=== PATIENT | female | born 1995 | race Caucasian/White ===

== ENCOUNTER 2017-01-29 23:57 | Emergency (ER) | payer OTHER ==
[2017-01-30 02:06] LABS: BASOPHIL % 0.3 % (0-2); PLATELET COUNT 236 x10^3mcL (130-400); RED CELL DISTRIBUTION WIDTH 14.3 % (11.5-14.5)
[2017-01-30 02:13] LABS: CALCIUM 8.9 mg/dL (8.5-10.1); CARBON DIOXIDE 27.3 mmol/L (21-32); CHLORIDE SERUM 104 mmol/L (98-107); CREATININE SERUM 0.5 mg/dL (0.6-1.0); GFR1 > 60 mL/min; GLUCOSE SERUM 107 mg/dL (74-106); POTASSIUM SERUM 3.9 mmol/L (3.5-5.1); SODIUM SERUM 140 mmol/L (136-145)
[2017-01-30 02:18] LABS: ALBUMIN 4.2 g/dL (3.4-5.0); ALKALINE PHOSPHATASE 30 U/L (46-116); ALT/SGPT 15 U/L (14-59); AST/SGOT 13 U/L (15-37); BILIRUBIN TOTAL 0.29 mg/dL (0.20-1.00); TOTAL PROTEIN, SERUM 7.8 g/dL (6.4-8.2)
[2017-01-30 03:40] VITALS: BP 100/65
== END 2017-01-30 03:40 | disposition home or self-care (01) ==
LOC: ED 23:57
PROVIDERS: Emergency Medicine
DX: R04.2 Hemoptysis (principal)
CPT/HCPCS: 36415

== ENCOUNTER 2018-07-26 05:47 | Emergency (ER) | payer OTHER ==
[~2018-07-26] VITALS: Ht 160 cm; Wt 57.7 kg
[2018-07-26 05:56] VITALS: Ht 160 cm; Wt 57.7 kg
[2018-07-26 08:23] VITALS: BP 101/74
== END 2018-07-26 08:23 | disposition home or self-care (01) ==
LOC: ED 05:47
DX: R06.00 Dyspnea, unspecified (principal)
CPT/HCPCS: 36600; 82962; Q0092

== ENCOUNTER 2019-03-16 01:13 | Emergency (ER) | payer OTHER ==
[~2019-03-16] VITALS: Ht 160 cm; Wt 56.7 kg
[2019-03-16 01:19] VITALS: BP 114/74; Ht 160 cm; Wt 56.7 kg
== END 2019-03-16 02:00 | disposition home or self-care (01) ==
LOC: ED 01:13
DX: T16.2XXA Foreign body in left ear, initial encounter (principal); W45.8XXA Other foreign body or object entering through skin, initial encounter; Y93.89 Activity, other specified; Y92.89 Other specified places as the place of occurrence of the external cause; Y99.8 Other external cause status
CPT/HCPCS: 90715; J2001

== ENCOUNTER 2019-07-16 06:27 | Emergency (ER) | payer OTHER ==
[~2019-07-16] VITALS: Ht 160 cm; Wt 56.0 kg
[2019-07-16 06:37] VITALS: Ht 160 cm; Wt 56.0 kg
[2019-07-16 07:08] LABS: BASOPHIL % 0.7 % (0-2); PLATELET COUNT 254 x10^3mcL (130-400); RED CELL DISTRIBUTION WIDTH 14.1 % (11.5-14.5)
[2019-07-16 07:26] LABS: CALCIUM 9.8 mg/dL (8.5-10.1); CARBON DIOXIDE 30.8 mmol/L (21-32); CHLORIDE SERUM 104 mmol/L (98-107); CREATININE SERUM 0.7 mg/dL (0.6-1.0); GFR1 > 60 mL/min; GLUCOSE SERUM 91 mg/dL (74-106); POTASSIUM SERUM 3.9 mmol/L (3.5-5.1); SODIUM SERUM 141 mmol/L (136-145)
[2019-07-16 07:31] LABS: ALBUMIN 4.3 g/dL (3.4-5.0); ALKALINE PHOSPHATASE 41 U/L (46-116); ALT/SGPT 18 U/L (14-59); AST/SGOT 14 U/L (15-37); TOTAL PROTEIN, SERUM 8.3 g/dL (6.4-8.2)
[2019-07-16 10:21] VITALS: BP 105/64
== END 2019-07-16 10:21 | disposition home or self-care (01) ==
LOC: ED 06:27
PROVIDERS: Emergency Medicine
DX: B34.9 Viral infection, unspecified (principal); E86.0 Dehydration
CPT/HCPCS: J2405; J7030